=== PATIENT | male | born 1960 | race Caucasian/White ===

== ENCOUNTER 2023-12-05 10:26 | Emergency (ER) | payer MEDICARE, OTHER ==
[~2023-12-05] VITALS: Ht 185.4 cm; Wt 127.3 kg
[2023-12-05 10:36] VITALS: BP 133/77; TEMP 98.3
[2023-12-05 11:56] LABS: BASO % 0.3 % (0.0-2.0); EOS # 0.6 K/mm3 (0.0-0.7); GRAN # 5.9 K/mm3 (1.4-6.5); HEMATOCRIT 44.6 % (42.0-52.0); HEMOGLOBIN 15.4 g/dl (13.5-18.0); MEAN CELL VOLUME 99 fl (80.0-100.0); MEAN CORPUSCULAR HEMOGLOBIN 34 pg (27-31); MEAN CORPUSCULAR HGB CONC 35 g/dl (33.0-37.0); MEAN PLATELET VOLUME 9.5 fl (7.4-10.4); MONO # 0.6 K/mm3 (0.1-0.6); MONO % 6.4 % (1.7-9.3); PLATELET COUNT 263 K/mm3 (130-400); RED BLOOD COUNT 4.53 M/mm3 (4.20-5.60); REDCELL DISTRIBUTION WIDTH-CV 13.1 % (11.5-14.5)
[2023-12-05 12:09] LABS: ALBUMIN 3.9 g/dL (3.4-4.8); BILIRUBIN,TOTAL 0.5 mg/dL (0.2-1.2); CALCIUM 9.5 mg/dL (8.4-10.2); CREATININE, serum 1.09 mg/dL (0.72-1.25); TOTAL PROTEIN 6.9 g/dl (6.2-8.1)
[2023-12-05] MEDS ORDERED: NS 100 ML IV SCH (12:54)
[2023-12-05] MEDS ORDERED: Iohexol 300 - 100 ML VIAL IV ONE (12:54)
[2023-12-05 14:00] VITALS: PULSE 58
== END 2023-12-05 14:00 | disposition home or self-care (01) ==
LOC: COL.ER 10:26
PROVIDERS: Nurse Practitioner
DX: R07.81 Pleurodynia (principal); Z87.891 Personal history of nicotine dependence; W01.0XXA Fall on same level from slipping, tripping and stumbling without subsequent striking against object, initial encounter
CPT/HCPCS: Q9967